=== PATIENT | female | born 1930 | race Caucasian/White ===

== ENCOUNTER 2019-01-20 17:12 | Emergency (ER) | payer MEDICAID ==
[~2019-01-20 17:12] MED LIST: CEL20 PO; LEVO88TA2 PO; LORA10TA7 PO; PRAV10TA PO
[2019-01-20 17:19] VITALS: BP_SYST 162
--- NOTE | 2019-01-20 17:19 | NUR ---
Patient AAOx4, primarily [place] speaking c/o chest pain radiating down to her right upper back area per patient's family member. Patient reports pain began one hour ago. Patient reports history of HTN and thyroid disease. Skin warm/pink/dry and respirations even and unlabored. No signs or symptoms of acute distress noted.
--- NOTE | 2019-01-20 17:19 | NUR ---
Placed in room 03 . Placed on environmental monitoring specialist, blood pressure machine and pulse oximeter. To gown for exam. Side rails up.
--- NOTE | 2019-01-20 17:21 | NUR ---
ER Dr. Darby at bedside examining patient.
[2019-01-20] MEDS ORDERED: KETOROLAC TROMETHAMINE 15 MG VIAL IVP ONE (17:30)
--- NOTE | 2019-01-20 17:30 | NUR ---
# 22 gauge angiocath placed to RAC. Use of asceptic technique. Opsite placed over site. Blood return noted. Blood for lab drawn from site. Flushed with 10 cc of normal saline. No evidence of infiltration noted. Patient tolerated well.
[2019-01-20 18:09] LABS: BASOPHILS # (AUTO) 0.1 K/uL (0.0-0.2); BASOPHILS % (AUTO) 1.2 % (0.0-2.0); EOSINOPHILS # (AUTO) 0.2 K/uL (0.0-0.4); EOSINOPHILS % (AUTO) 3.9 % (0.0-4.0); HEMATOCRIT 39.4 % (36-48); HEMOGLOBIN 13.2 g/dL (12.0-16.0); LYMPHOCYTES # (AUTO) 2.9 K/uL (1.0-5.5); MEAN CORPUSCULAR HEMOGLOBIN 32 pg (27-31); MEAN CORPUSCULAR HGB CONC 34 % (32-36); MEAN CORPUSCULAR VOLUME 95 fL (79.0-98.0); MONOCYTES # (AUTO) 0.5 K/uL (0.0-1.0); MONOCYTES % (AUTO) 7.7 % (1.7-9.3); NEUTROPHILS # (AUTO) 2.6 K/uL (1.8-7.7); NEUTROPHILS % (AUTO) 41.2 % (40.0-70.0); PLATELET COUNT (AUTO) 214 K/uL (130-430); RED BLOOD CELL COUNT(AUTO) 4.12 MIL/uL (4.2-6.2); RED CELL DISTRIBUTION WIDTH 14.5 % (9.0-15.0); WHITE BLOOD COUNT (AUTO) 6.2 K/uL (4.8-10.8)
[2019-01-20 18:27] LABS: ANION GAP 5 (5-15); CALCIUM 9.3 mg/dL (8.4-11.0); CHLORIDE 105 mmol/L (98-107); CREATININE 0.97 mg/dL (0.55-1.30); GLUCOSE 97 mg/dL (70-99); POTASSIUM 4.4 mmol/L (3.5-5.1); SODIUM SERUM 137 mmol/L (136-145); UREA NITROGEN, BLOOD 21 mg/dL (8-21)
[2019-01-20 18:32] LABS: ALANINE AMINOTRANSFERASE 29 U/L (12-78); ALBUMIN 3.4 g/dL (3.4-4.8); ASPARTATE AMINOTRANSFERASE 27 U/L (10-37); TOTAL BILIRUBIN 0.4 mg/dL (0.0-1.0)
--- NOTE | 2019-01-20 19:14 | NUR ---
Endorsed bedside report to Alyce DILLARD using SBAR approach for continuation of care.
--- NOTE | 2019-01-20 19:25 | NUR ---
Patient resting comfortably, no acute distress noted at this time.
--- NOTE | 2019-01-20 19:40 | NUR ---
Obtained consent from patient for CTA chest with contrast and placed in chart.
[2019-01-20] MEDS ORDERED: ISOS30TA9 PO (19:45)
--- NOTE | 2019-01-20 19:45 | NUR ---
Medication reconciliation completed with information provided by Cullen joseph). Any prior medication reconciliation on file was reviewed and corrected.
--- NOTE | 2019-01-20 19:50 | NUR ---
# 20 gauge angiocath placed to RAC. Use of asceptic technique. Opsite placed over site. Blood return noted. Flushed with 10 cc of normal saline. No evidence of infiltration noted. Patient tolerated well.
[2019-01-20] MEDS ORDERED: IOHEXOL 350 mgI/mL, 150 ML INFUS..BTL IV ONE (20:19)
--- NOTE | 2019-01-20 21:42 | NUR ---
Patient given written and verbal discharge instructions and verbalizes understanding. ER MD discussed with patient the results and treatment provided. Patient in stable condition. ID arm band removed. IV catheter removed intact and dressing applied, no active bleeding. Rx of zofran,tramadol given. Patient educated on pain management and to follow up with PMD. Pain Scale 0/10. Opportunity for questions provided and answered. Medication side effect fact sheet provided.
[2019-01-20 21:44] VITALS: BP_SYST 153
== END 2019-01-20 21:44 | disposition home or self-care (01) ==
LOC: SED 17:12
DX: R07.89 Other chest pain (principal); I10 Essential (primary) hypertension; E78.5 Hyperlipidemia, unspecified; Z90.49 Acquired absence of other specified parts of digestive tract; Z90.89 Acquired absence of other organs; Z90.710 Acquired absence of both cervix and uterus; Z79.899 Other long term (current) drug therapy
CPT/HCPCS: 36415; 71045; 71275; 80053; 82550; 83880; 84484; 85025; 85379; 96374; 99284; J1885; Q9967